=== PATIENT | female | born 1935 | race Caucasian/White ===

== ENCOUNTER → 2017-01-14 | Outpatient (CLI) | payer MEDICARE, OTHER | END | disposition home or self-care (01) | LOC: PCVCCLINIC 11:36 | PROVIDERS: ATTEND Internal Medicine Cardiovascular Disease | DX: I25.10 Atherosclerotic heart disease of native coronary artery without angina pectoris (principal); I77.9 Disorder of arteries and arterioles, unspecified; I10 Essential (primary) hypertension; J44.9 Chronic obstructive pulmonary disease, unspecified; E78.00 Pure hypercholesterolemia, unspecified; Z79.82 Long term (current) use of aspirin; Z79.899 Other long term (current) drug therapy; Z87.891 Personal history of nicotine dependence | CPT/HCPCS: 80061; 93005; G0463 ==

== ENCOUNTER → 2018-03-30 | Outpatient (CLI) | payer MEDICARE, OTHER | END | disposition home or self-care (01) | LOC: PCVCCLINIC 11:38 | PROVIDERS: ATTEND Internal Medicine Cardiovascular Disease | DX: I25.10 Atherosclerotic heart disease of native coronary artery without angina pectoris (principal); I82.402 Acute embolism and thrombosis of unspecified deep veins of left lower extremity; E78.00 Pure hypercholesterolemia, unspecified; I10 Essential (primary) hypertension; J44.9 Chronic obstructive pulmonary disease, unspecified; Z88.8 Allergy status to other drugs, medicaments and biological substances; Z87.891 Personal history of nicotine dependence; Z79.899 Other long term (current) drug therapy | CPT/HCPCS: 80061; 93005; G0463 ==

== ENCOUNTER → 2018-07-13 | Outpatient (CLI) | payer MEDICARE, OTHER ==
--- NOTE | 2018-07-13 16:35 | PCVCIMAG ---
APPROVED REPORT Study performed: 07/13/2018 13:37:10 EXAM: Comprehensive 2D, Doppler, and color-flow Echocardiogram Patient Location: Echo lab Status: routine BSA: 1.84 HR: 63 bpmBP: 138/62 mmHg Rhythm: NSR Other Information Study Quality: Adequate Risk Factors: Cardiac Risk Factors: HTN Indications COPD CAD DVT, mitral regurgitation, aortic insufficiency 2D Dimensions IVSd: 11.15 (7-11mm) LVDd: 44.20 mm PWd: 9.71 (7-11mm) LVDs: 32.53 (25-40mm) Left Atrium: 38.02 (27-40mm) Aortic Root: 31.31 mm LV Single Plane 4CH: 61.58 % LV Single Plane 2CH: 65.24 % Biplane EF: 62.6 % Volumes Left Atrial Volume (Systole) Single Plane 4CH: 52.45 mLSingle Plane 2CH: 80.59 mL LA ESV Index: 37.00 mL/m2 Aortic Valve AoV Peak Ethan.: 1.56 m/s AO Peak Gr.: 9.71 mmHgLVOT Max P.38 mmHg LVOT Max V: 1.16 m/s AI Vmax: 3.91 m/s AI [place]: 2.81 m/s2 AI PHT: 403.89 ms Mitral Valve E/A Ratio: 0.8 MV Decel. Time: 268.20 ms MV E Max Ethan.: 0.68 m/s MV A Ethan.: 0.89 m/s IVRT: 107.27 ms Pulmonary Valve PV Peak Ethan.: 1.19 m/sPV Peak Gr.: 5.62 mmHg Pulmonary Vein P Vein S: 0.43 m/sP Vein A: 0.37 m/s P Vein D: 0.60 m/sP Vein A Dur.: 152.2 msec P Vein S/D Ratio: 0.72 Left Ventricle The left ventricle is normal size. There is normal LV segmental wall motion. There is normal left ventricular wall thickness. Left ventricular systolic function is normal. The left ventricular ejection fraction is within the normal range. LVEF is 60-65%. Grade I - abnormal relaxation pattern. Right Ventricle The right ventricle is normal size. The right ventricular systolic function is normal. Atria Left atrium is mildly dilated. The right atrium size is normal. Aortic Valve Moderate aortic valve sclerosis. Mild to moderate aortic regurgitation. There is no aortic valvular stenosis. Mitral Valve Mild anterior leaflet prolapse with mild-moderate eccentric, posterior wall jet. Mild-moderate eccentric, posterior wall jet. No evidence of mitral valve stenosis. Tricuspid Valve The tricuspid valve is normal in structure. No tricuspid regurgitation. Pulmonic Valve The pulmonary valve is normal in structure. There is no pulmonic valvular regurgitation. Great Vessels The aortic root is not well visualized but is probably normal size. IVC is normal in size and collapses >50% with inspiration. Pericardium There is no pericardial effusion. There is no pleural effusion. <Conclusion> The left ventricle is normal size. LVEF is 60-65%. Grade I - abnormal relaxation pattern. Left atrium is mildly dilated. Moderate aortic valve sclerosis. Mild to moderate aortic regurgitation. Mild anterior leaflet prolapse with mild-moderate eccentric, posterior wall jet. Mild-moderate eccentric, posterior wall jet. No tricuspid regurgitation. The aortic root is not well visualized but is probably normal size. There is no pericardial effusion.
--- NOTE | 2018-07-13 17:50 | PCVCIMAG ---
EXAM: VENOUS DUPLEX LEFT LOWER EXTREMITY INDICATION: Leg pain and swelling. Left leg: No thrombus in the common femoral and profunda femoral veins. There is moderate nonocclusive thrombus throughout the main femoral vein and the upper popliteal vein. Lower popliteal vein is patent. Calf veins are unremarkable where seen. IMPRESSION: Moderate nonocclusive thrombus throughout the left main femoral vein and upper left popliteal vein. No prior studies available for comparison currently. Please note the technologist worksheet was marked incorrectly but I confirmed with the technologist the left leg was the leg examined. LOC:[id number]
== END | disposition home or self-care (01) ==
LOC: PCVCIMAG 13:25
PROVIDERS: ATTEND Internal Medicine Cardiovascular Disease
DX: I08.0 Rheumatic disorders of both mitral and aortic valves (principal); I25.10 Atherosclerotic heart disease of native coronary artery without angina pectoris; R94.31 Abnormal electrocardiogram [ECG] [EKG]; J44.9 Chronic obstructive pulmonary disease, unspecified; I10 Essential (primary) hypertension; E78.5 Hyperlipidemia, unspecified; I82.412 Acute embolism and thrombosis of left femoral vein; I82.432 Acute embolism and thrombosis of left popliteal vein; E78.00 Pure hypercholesterolemia, unspecified; I82.402 Acute embolism and thrombosis of unspecified deep veins of left lower extremity; I65.23 Occlusion and stenosis of bilateral carotid arteries; Z87.891 Personal history of nicotine dependence; Z88.5 Allergy status to narcotic agent
CPT/HCPCS: 80061; 93005; 93306; 93971; G0463

== ENCOUNTER → 2018-11-18 | Outpatient (CLI) | payer MEDICARE, OTHER ==
--- NOTE | 2018-11-18 15:58 | PCVCIMAG ---
EXAM: VENOUS DUPLEX LEFT LOWER EXTREMITY INDICATION: Leg pain and swelling. Follow-up DVT. FINDINGS: Left leg: Mild/moderate nonocclusive chronic appearing thrombus throughout the main femoral vein and upper popliteal vein similar to June 2018 study. The common femoral and profunda femoral veins are patent. Lower popliteal vein and calf veins are also patent. IMPRESSION: Mild/moderate nonocclusive thrombus left main femoral vein and upper left popliteal vein unchanged since June 2018 study. LOC:[id number]
== END | disposition home or self-care (01) ==
LOC: PCVCIMAG 14:19
PROVIDERS: ATTEND Internal Medicine Cardiovascular Disease
DX: I82.412 Acute embolism and thrombosis of left femoral vein (principal); M79.89 Other specified soft tissue disorders
CPT/HCPCS: 93971

== ENCOUNTER → 2019-08-09 | Outpatient (CLI) | payer MEDICARE, OTHER ==
--- NOTE | 2019-08-09 11:22 | PCVCIMAG ---
EXAM: VENOUS DUPLEX LEFT LOWER EXTREMITY INDICATION: Leg pain and swelling. FINDINGS: Left leg: No thrombus in the common femoral or popliteal veins. These veins are compressible with phasic flow. Calf veins are unremarkable where seen. Mild nonocclusive chronic appearing thrombus mid and lower main femoral vein. Upper femoral vein is patent. IMPRESSION: Since November 2018 study upper main femoral vein and popliteal vein thrombus has resolved. Mild nonocclusive thrombus mid and lower left main femoral vein slightly improved since prior study. LOC:[id number]
== END | disposition home or self-care (01) ==
LOC: PCVCIMAG 08:54
PROVIDERS: ATTEND Internal Medicine Cardiovascular Disease
DX: I82.412 Acute embolism and thrombosis of left femoral vein (principal); M79.89 Other specified soft tissue disorders; E78.00 Pure hypercholesterolemia, unspecified; I10 Essential (primary) hypertension; I25.10 Atherosclerotic heart disease of native coronary artery without angina pectoris; I34.0 Nonrheumatic mitral (valve) insufficiency; I65.23 Occlusion and stenosis of bilateral carotid arteries; J44.9 Chronic obstructive pulmonary disease, unspecified; Z87.891 Personal history of nicotine dependence; Z88.8 Allergy status to other drugs, medicaments and biological substances; Z79.899 Other long term (current) drug therapy
CPT/HCPCS: 36415; 80061; 93005; 93971; G0463